=== PATIENT | male | born 1960 | race Caucasian/White ===

== ENCOUNTER 2021-12-31 10:57 | Emergency (ER) | payer SELFPAY ==
[~2021-12-31] VITALS: Ht 188 cm; Wt 102.1 kg
[~2021-12-31 10:57] MED LIST: Bactrim Ds Tab1 EACH PO; CEPH500 PO; CYCL10 PO; DIPATR PO; HYDACE5 PO; RXCYCL10 PO
[2021-12-31] MEDS ORDERED: Amoxicillin500 MG PO (11:49)
== END 2021-12-31 11:51 | disposition home or self-care (01) ==
LOC: ER 10:57
DX: K04.7 Periapical abscess without sinus (principal)
CPT/HCPCS: 99282